=== PATIENT | female | born 2005 | race Caucasian/White ===

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

== ENCOUNTER 2024-11-02 12:47 | Emergency (ER) | payer OTHER, SELFPAY ==
--- OUTSIDE RECORDS SUMMARY | 2024-11-02 12:53 | XMS_ITS | Patient Health Summary ---
Author Organization [facility] Address [address] [place] [address] Care Team Providers Care Sales Professional Name Role Phone Julian Carias MD Primary Care Provider [phone] Note from [facility],non-owned Affiliates and Associated Physician Practices is amultiple site organization consisting of ambulatory clinics and hospital sitesin [place], [place], [place] and [place]. This disclosure is being madepursuant to the Care Everywhere program and may not contain all information available regarding this patient. Last updated 18.[facility] Allergies * Morphine(Rash) -Medium Criticality Medications * Be aware that medications may not be up to date on this document. Alwaysverify current medications with the patient. * ketorolac (TORADOL) 10 MG tablet(Started 04/04/2016) Take 1 Tab by mouth every 6 hours as needed for Pain * docusate sodium (COLACE) 100 MG capsule(Started 04/04/2016) Take 1 Cap by mouth once daily Active Problems Problem Noted Date Diagnosed Date S/P appendectomy 04/04/2016 Social History Tobacco Use Types Packs/Day Years Used Date Smoking Tobacco: Never Alcohol Use Standard Drinks/Week Comments No 0 (1 standard drink = 0.6 oz pur e alcohol) Sex and Gender Information Value Date Recorded Sex Assigned at Not on file Gender Identity Not on file Sexual Orientation Not on file Last Filed Vital Signs Vital Sign Reading Time Taken Comments Blood Pressure 108/70 04/04/2016 3:22 PM CDT Pulse 88 04/04/2016 3:22 PM CDT Temperature 36.6 C (97.8 F) 04/04/2016 3:22 PM CDT Respiratory Rate 20 04/04/2016 3:22 PM CDT Oxygen Saturation 96% 04/04/2016 12:00 PM CDT Inhaled Oxygen Concentration 100% 04/04/2016 9 :15 AM CDT Weight 66.9 kg (147 lb 7.8 oz) 04/04/2016 3:15 A M CDT Height 156 cm (5' 1.42 ) 04/04/2016 3:15 AM CDT Body Mass Index 27.49 04/04/2016 3:15 AM CDT Procedures * PATHOLOGY TISSUE EXAM (STL)(Performed 04/04/2016) Performed for Other acute appendicitis * LAPAROSCOPIC APPENDECTOMY (PEDIATRIC)(Performed 04/04/2016) Performed for Other acute appendicitis * HCG URINE QUALITATIVE - POCT (IP) BEAKER(Performed 04/04/2016) * CT OUTSIDE CONSULTATION(Performed 04/04/2016) Performed for Acute appendicitis, unspecified acute appendicitis type Results * GROSS + MICRO EXAM (STL) (04/04/2016 8:32 AM CDT) Case Report Surgical Pathology Report Case: [id number] Authorizing Provider: Ranjana Slater MD Collected: 04/04/2016 08:32 AM Ordering Location: [facility] Received: 04/06/2016 07:50 AM Pathologist: Josh Velázquez MD Specimen: Appendix 04/07/2016 5:30 PM T [facility] Final Diagnosis VERMIFORM APPENDIX, EXCISION: - ACUTE APPENDICITIS. - ACUTE SEROSITIS. 04/07/2016 5:30 PM [facility] Clinical History The patient is a 10-year-old girl with acute appendicitis who underwent laparoscopic appendectomy. 04/07/2016 5:30 PM T [facility] Gross Description Submitted fixed in formalin in one container for gross and microscopic examination labeled with the patient's name, Ivanna Nolasco, and appendix is a 6 x 2.2 x 1 cm vermiform appendix with attached mesoappendix. The external surface is purple-cummins, congested, and partially surfaced by a white, fibrinous exudate. The proximal appendix and mesentery are stapled. The appendiceal lumen is patent and contains red mucoid material. The appendiceal wall varies from 0.2 cm to 0.4 cm in thickness. The appendiceal lumen varies from 0.2 cm to 0.4 cm in diameter. The specimen is serially sectioned, and real estate representative sections are submitted in cassette A1. (CT/na) 04/07/2016 5:30 PM CDT [facility] Microscopic Description 1 H&E. Sections of the vermiform appendix show intraluminal pus, mucosal ulceration, a transmural neutrophilic inflammatory infiltrate extending to involve mesoappendiceal adipose tissue, and a serosal fibrinopurulent exudate. Ganglia are present in submucosal and myenteric plexuses. (DSB) 04/07/2016 5:30 PM CDT [facility] Pathology/Cytolo gy ENTIRE APPENDIX / Unknown 04/04/2016 8:32 AM CDT 04/06/2016 7:50 AM CDT Ranjana Slater MD LAB - PATHOLOGY/CY TOLOGY ORDERABLES Performing Organization Address City/[facility]/ZIP Co de Phone Number [facility] [address] [place] [address] * HCG URINE QUALITATIVE - POCT (IP) BEAKER (04/04/2016 12:40 AM CDT) HCG Qual Urine Negative Negative [facility] POCT TESTING QC Verified Yes Yes [facility] PO CT TESTING Urine specimen (specimen) URINE / Unknown 04/04/2016 12:40 AM CDT Mitzi Ramirez MD LAB - POINT OF CARE ORDERABLES Performing Organization Address City/[facility]/ZIP Co de Phone Number [facility] PO[facility] TESTING [address] [phone] * CT OUTSIDE CONSULTATION (04/04/2016 12:30 AM CDT) Anatomical Region Laterality Modality Computed Tomogra phy 04/04/2016 8:47 AM CDT Impressions 04/04/2016 8:59 AM CDT Hyperemic, dilated right lower quadrant appendix with periappendiceal stranding, most consistent with acute appendicitis. Preliminary findings were communicated electronically by the PACS system by Dr. Woodward at 12:39 AM on 04/04/2016. The findings, conclusions and recommendations within this report do not replace the initial findings, conclusions and recommendations made at the facility where the study was performed based upon the imaging and clinical condition at that time. Comparison with the prior report and clinical history is necessary. The provided images may or may not represent the [place] source data set and thus may contain changes which may lower the sensitivity in the second opinion interpretation. Narrative 04/04/2016 8:59 AM CDT EXAMINATION: RADIOLOGY CONSULTATION ON OUTSIDE IMAGING STUDY STUDY INITIALLY PERFORMED: On 04/03/2016 by [facility]. TYPE OF STUDY: A total of 467 CT images of the abdomen and pelvis are provided at the time of this interpretation. The study consists of images obtained with intravenous contrast material. The protocol was adequate to answer the clinical question. The outside final report was not provided at the time of this second opinion. DATE OF CONSULTATION: 04/04/2016 REASON FOR CONSULTATION: 10-year-old with abdominal pain. Evaluate for appendicitis. COMPARISON: None. FINDINGS: The examination is somewhat degraded by motion artifact. The lung bases are clear without focal dilatation or pleural effusion. A calcified nodule in the left lower lobe is likely reflective of old granulomatous disease. The imaged heart size is normal without pericardial effusion. The liver parenchyma enhances homogeneously without focal lesions. There is no intra-or extrahepatic biliary ductal dilatation. The gallbladder, adrenal glands, spleen, and pancreas are normal. The kidneys enhance symmetrically without hydronephrosis. The right lower quadrant appendix is dilated measuring 1.1 cm in diameter. The appendiceal wall is hyperemic. There is periappendiceal fat stranding. A small amount of free fluid is seen in the pelvis. No peripherally, loculated fluid collections are present. Small reactive right lower quadrant mesenteric lymph nodes are present. There is no bowel obstruction or free intraperitoneal gas. A 2 cm right adnexal cyst is noted. The uterus appears normal for the patient's age. The urinary bladder is mildly distended. The abdominal aorta is normal in course and caliber. There is incomplete posterior fusion of S1 with a bifid spinous process. Bone windows do not demonstrate any suspicious lytic or blastic osseous lesions. Procedure Note Iris Ricketts MD - 04/04/2016 EXAMINATION: RADIOLOGY CONSULTATION ON OUTSIDE IMAGING STUDY STUDY INITIALLY PERFORMED: On 04/03/2016 by [facility]. TYPE OF STUDY: A total of 467 CT images of the abdomen and pelvis are provided at the time of this interpretation. The study consists of images obtained with intravenous contrast material. The protocol was adequate to answer the clinical question. The outside final report was not provided at the time of this second opinion. DATE OF CONSULTATION: 04/04/2016 REASON FOR CONSULTATION: 10-year-old with abdominal pain. Evaluate for appendicitis. COMPARISON: None. FINDINGS: The examination is somewhat degraded by motion artifact. The lung bases are clear without focal dilatation or pleural effusion. A calcified nodule in the left lower lobe is likely reflective of old granulomatous disease. The imaged heart size is normal without pericardial effusion. The liver parenchyma enhances homogeneously without focal lesions. There is no intra-or extrahepatic biliary ductal dilatation. The gallbladder, adrenal glands, spleen, and pancreas are normal. The kidneys enhance symmetrically without hydronephrosis. The right lower quadrant appendix is dilated measuring 1.1 cm in diameter. The appendiceal wall is hyperemic. There is periappendiceal fat stranding. A small amount of free fluid is seen in the pelvis. No peripherally, loculated fluid collections are present. Small reactive right lower quadrant mesenteric lymph nodes are present. There is no bowel obstruction or free intraperitoneal gas. A 2 cm right adnexal cyst is noted. The uterus appears normal for the patient's age. The urinary bladder is mildly distended. The abdominal aorta is normal in course and caliber. There is incomplete posterior fusion of S1 with a bifid spinous process. Bone windows do not demonstrate any suspicious lytic or blastic osseous lesions. IMPRESSION Hyperemic, dilated right lower quadrant appendix with periappendiceal stranding, most consistent with acute appendicitis. Preliminary findings were communicated electronically by the PACS system by Dr. Woodward at 12:39 AM on 04/04/2016. The findings, conclusions and recommendations within this report do not replace the initial findings, conclusions and recommendations made at the facility where the study was performed based upon the imaging and clinical condition at that time. Comparison with the prior report and clinical history is necessary. The provided images may or may not represent the [place] source data set and thus may contain changes which may lower the sensitivity in the second opinion interpretation. Mitzi Ramirez MD CT ORDERABLES Care Teams Sales Professional Relationship Specialty Start Date End Date Julian Carias MD [address] [place] [address] PCP - General Family Medicine 04/03/16
--- OUTSIDE RECORDS SUMMARY | 2024-11-02 12:53 | XMS_ITS | Referral Summary ---
Author Organization [facility] Address [address] [place] [address] Care Team Providers Care Registered Phlebotomist Part Time Name Role Phone Julian Carias MD Primary Care Provider [phone] Source Comments [facility],non-owned Affiliates and Associated Physician Practices is amultiple site organization consisting of ambulatory clinics and hospital sitesin [place], [place], [place] and [place]. This disclosure is being madepursuant to the Care Everywhere program and may not contain all information available regarding this patient. Last updated 18.[facility] Allergies Active Allergy Reactions Criticality Noted Date Comments Morphine Rash Medium 04/03/2016 Medications * Be aware that medications may not be up to date on this document. Alwaysverify current medications with the patient. Medication Sig Dispensed Refills Start Date End Date Status ketorolac (TORADOL) 10 MG tablet Take 1 Tab by mouth every 6 hours as needed for Pain 12 Tab 0 04/04/2016 Active docusate sodium (COLACE) 100 MG capsule Take 1 Cap by mouth once daily 10 Cap 0 04/04/2016 Active Active Problems Problem Noted Date Diagnosed Date [...] Mass Index 27.49 04/04/2016 3:15 AM CDT Functional Status Functional Status Response Date of Assess ment Is person deaf or have serious hearing difficult y? No 04/04/2016 Is person blind or have serious difficulty seein g? No 04/04/2016 Does person have serious dif ficulty walking/climbing stairs? No 04/04/2016 Does person have difficulty dressing/bathing? No 04/04/2016 Does person have difficulty doing errands alone? No 04/04/2016 Cognitive Status Response Date of Assessm ent Does person have difficulty concentrating/remembering/making decisions? No 04/04/2016 Plan of Treatment Not on file Advance Directives * Full Code (Latest Code Status on File) Date Activated Date Inactivated Comments 04/04/2016 11:11 AM 04/04/2016 6:48 PM * Full Code Date Activated Date Inactivated Comments 04/04/2016 3:01 AM 04/04/2016 11:11 AM Care Teams Registered Phlebotomist Part Time Relationship Specialty Start Date End Date Julian Carias MD [address] [place] [address] PCP - General Family Medicine 04/03/16
--- OUTSIDE RECORDS SUMMARY | 2024-11-02 12:53 | XMS_ITS | Clinical Summary ---
Author Organization [facility] Address [address] [place] [address] Care Team Providers Care Fill Plant Operator Name Role Phone Julian Carias MD Primary Care Provider [phone] Source Comments [facility],non-owned Affiliates and Associated Physician Practices is amultiple site organization consisting of ambulatory clinics and hospital sitesin [place], [place], [place] and [place]. This disclosure is being madepursuant to the Care Everywhere program and may not contain all information available regarding this patient. Last updated 18.[facility] [employer] Allergies Active Allergy Reactions Criticality Noted Date [...] Mass Index 27.49 04/04/2016 3:15 AM CDT Plan of Treatment Health Maintenance Due Date Last Done Comments PAP SMEAR 2003 HIV SCREENING 2018 HPV VACCINE (1 - 3-dose series) 2018 CHLAMYDIA/GONORRHEA SCREENING 2019 MENINGOCOCCAL (Group B) VACC INE (1 of 2 - Standard) 2019 HEPATITIS C SCREENING 07/04/2021 DTAP/TDAP/TD VACCINES (1 - Tdap) 2022 HEPATITIS B VACCINE (1 of 3 - 19+ 3-dose series) 2022 COVID-19 VACCINE (1 - 2023-2 5 season) 2024 INFLUENZA VACCINE (#1) 2024 DEPRESSION SCREENING 09/27/2024 ZOSTER VACCINE (1 of 2) 2053 HIB VACCINE Aged Out No longer eligi ble based on patient's age to complete this topic MENINGOCOCCAL VACCINE Aged Out No pauline ld eligible based on patient's age to complete this topic PNEUMOCOCCAL VACCINE Aged Out No long er eligible based on patient's age to complete this topic Advance Directives * Full Code (Latest Code Status on File) Date Activated Date Inactivated Comments 04/04/2016 11:11 AM 04/04/2016 6:48 PM * Full Code Date Activated Date Inactivated Comments 04/04/2016 3:01 AM 04/04/2016 11:11 AM Care Teams Fill Plant Operator Relationship Specialty Start Date End Date Julian Carias MD [address] [place], [place] [id number] PCP - General Family Medicine 04/03/16
[2024-11-02 12:55] VITALS: BP 148/90; PULSE 104; RESP 18; TEMP 36.9; O2SAT 100
[2024-11-02 13:39] LABS: Strep Group A RT-PCR NOT DETECTED (Negative)
--- OUTSIDE RECORDS SUMMARY | 2024-11-02 13:42 | XMS_ITS | Clinical Summary ---
Author Organization [facility] Address [address] [place] [address] Care Team Providers Care Family Counselor Name Role Phone Julian Carias MD Primary Care Provider [phone] Source Comments [facility],non-owned Affiliates and Associated Physician Practices is amultiple site organization consisting of ambulatory clinics and hospital sitesin [place], [place], [place] and [place]. This disclosure is being madepursuant to the Care Everywhere program and may not contain all information available regarding this patient. Last updated 18.[facility] [employer] Allergies Active Allergy Reactions Criticality Noted Date [...] 3:01 AM 04/04/2016 11:11 AM Care Teams Family Counselor Relationship Specialty Start Date End Date Julian Carias MD [address] [place], [place] [id number] PCP - General Family Medicine 04/03/16
--- OUTSIDE RECORDS SUMMARY | 2024-11-02 13:42 | XMS_ITS | Patient Health Summary ---
Author Organization [facility] Address [address] [place] [address] Care Team Providers Care Tool Honing Machine Set Up Operator Name Role Phone Julian Carias MD Primary Care Provider [phone] Note from [facility],non-owned Affiliates and Associated Physician Practices is amultiple site organization consisting of ambulatory clinics and hospital sitesin [place], [place], [place] and [place]. This disclosure is being madepursuant to the Care Everywhere program and may not contain all information available regarding this patient. Last updated 18.[facility] Allergies * Morphine(Rash) [...] CDT) Case Report Surgical Pathology Report Case: [id number] Authorizing Provider: Ranjana Slater MD Collected: 04/04/2016 08:32 AM Ordering Location: [facility] Received: 04/06/2016 07:50 AM Pathologist: Josh Velázquez MD Specimen: Appendix 04/07/2016 5:30 PM T [facility] Final Diagnosis VERMIFORM APPENDIX, EXCISION: - ACUTE APPENDICITIS. - ACUTE SEROSITIS. 04/07/2016 5:30 PM [facility] Clinical History The patient is a 10-year-old girl with acute appendicitis who underwent laparoscopic appendectomy. 04/07/2016 5:30 PM T [facility] Gross Description Submitted fixed in formalin [...] diameter. The specimen is serially sectioned, and insurance claim representative sections are submitted in cassette A1. (CT/na) 04/07/2016 5:30 PM CDT [facility] Microscopic Description 1 H&E. Sections of the vermiform appendix show intraluminal pus, mucosal ulceration, a transmural neutrophilic inflammatory infiltrate extending to involve mesoappendiceal adipose tissue, and a serosal fibrinopurulent exudate. Ganglia are present in submucosal and myenteric plexuses. (DSB) 04/07/2016 5:30 PM CDT [facility] Pathology/Cytolo gy ENTIRE APPENDIX / Unknown 04/04/2016 8:32 AM CDT 04/06/2016 7:50 AM CDT Ranjana Slater MD LAB - PATHOLOGY/CY TOLOGY ORDERABLES Performing Organization Address City/[facility]/ZIP Co de Phone Number [facility] [address] [place] [address] * HCG URINE QUALITATIVE - POCT (IP) BEAKER (04/04/2016 12:40 AM CDT) HCG Qual Urine Negative Negative [facility] POCT TESTING QC Verified Yes Yes [facility] PO CT TESTING Urine specimen (specimen) URINE / Unknown 04/04/2016 12:40 AM CDT Mitzi Ramirez MD LAB - POINT OF CARE ORDERABLES Performing Organization Address City/[facility]/ZIP Co de Phone Number [facility] POCT TEST[facility] [address] [phone] * CT OUTSIDE CONSULTATION (04/04/2016 12:30 AM [...] images may or may not represent the [place] source data set and thus may contain changes which may lower the sensitivity in the second opinion interpretation. Narrative 04/04/2016 8:59 AM CDT EXAMINATION: RADIOLOGY CONSULTATION ON OUTSIDE IMAGING STUDY STUDY INITIALLY PERFORMED: On 04/03/2016 by [facility]. TYPE OF STUDY: A total of 467 [...] STUDY STUDY INITIALLY PERFORMED: On 04/03/2016 by [facility]. TYPE OF STUDY: A total of 467 [...] images may or may not represent the [place] source data set and thus may contain changes which may lower the sensitivity in the second opinion interpretation. Mitzi Ramirez MD CT ORDERABLES Care Teams Tool Honing Machine Set Up Operator Relationship Specialty Start Date End Date Julian Carias MD [address] [place] [address] PCP - General Family Medicine 04/03/16
--- OUTSIDE RECORDS SUMMARY | 2024-11-02 13:42 | XMS_ITS | Referral Summary ---
Author Organization [facility] Address [address] [place] [address] Care Team Providers Care Cosmetic Sales Name Role Phone Julian Carias MD Primary Care Provider [phone] Source Comments [facility],non-owned Affiliates and Associated Physician Practices is amultiple site organization consisting of ambulatory clinics and hospital sitesin [place], [place], [place] and [place]. This disclosure is being madepursuant to the Care Everywhere program and may not contain all information available regarding this patient. Last updated 18.[facility] Allergies Active Allergy Reactions Criticality Noted Date [...] 3:01 AM 04/04/2016 11:11 AM Care Teams Cosmetic Sales Relationship Specialty Start Date End Date Julian Carias MD [address] [place] [address] PCP - General Family Medicine 04/03/16
[2024-11-02 13:50] LABS: Influenza A QL RT-PCR Negative (Negative); Influenza B QL RT-PCR Negative (Negative); RSV RNA, RT-PCR Positive (Negative); SARS-CoV-2 RNA PCR Negative (Negative)
--- NOTE | 2024-11-02 14:17 | ED_ITS ---
HPI - URI/Sore Throat General Chief Complaint: Upper Respiratory Infection Stated Complaint: cough, ST Time Seen by Provider: 11/02/24 13:18 Source: patient Mode of arrival: ambulatory Limitations: no limitations History of Present Illness HPI Narrative: Patient is a 19-year-old female who presents the ED with report of URI symptoms. Patient reports she has been sick over the last several days with sore throat, mild cough, congestion, rhinorrhea, body aches, headache. 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 Has been taking pswd-iol-trocxxx cold medicines at home. Denies fevers. Denies shortness of breath. Related Data Allergies Allergy/AdvReac Type Severity Reaction Status Date / Time morphine Allergy Unknown Hives / Verified 11/02/24 12:55 Red Face Review of Systems Review of Systems: All systems reviewed & are unremarkable except as noted in HPI. All systems reviewed & are unremarkable except as noted in HPI and below PMFSH Surgical History Surgical History History of appendectomy (2015) Hx of tonsillectomy (06/27/08) Family History Family History Father Hypertension Family history of elevated blood lipids Grandparent Hypertension Social History Social History Smoking status: Never smoker Alcohol intake: never Lack of Transportation: No Lack of Food: Never True Current Housing: I Have Housing Concerned About Future Housing: No Difficulty Paying Gas/Electric Bills: No Difficulty Paying for Meds: No Currently Unemployed: No Education: High School Diploma/GED Difficulty w/ Childcare or Family Care: No Exam Narrative: GENERAL: Well appearing, well-nourished, non-toxic, in no acute distress. HEAD: Normocephalic, atraumatic. ENT: Some cerumen present reyes. No TM erythema or bulging. No drainage. Mild posterior pharynx erythema. Tonsils are absent. Uvula midline. RESPIRATORY: Airway patent, respirations nonlabored. Clear to auscultation bilaterally, no rales, rhonchi, wheezing. CARDIOVASCULAR: Regular rate and rhythm MUSCULOSKELETAL: Moves all extremities. No gross deformities. SKIN: Warm, dry, normal color. NEURO: A&O X3. Speech clear. PSYCHIATRIC: Appropriate mood and affect. Normal interaction. Course Vital Signs Vital signs: Vital Signs Temperature 98.5 F 11/02/24 12:55 Pulse Rate 104 H 11/02/24 12:55 Respiratory Rate 18 11/02/24 12:55 Blood Pressure 148/90 H 11/02/24 12:55 Pulse Oximetry 100 11/02/24 12:55 Oxygen Delivery Room Air 11/02/24 12:55 Temperature 98.5 F 11/02/24 12:55 Pulse Rate 104 H 11/02/24 12:55 Respiratory Rate 18 11/02/24 12:55 Blood Pressure 148/90 H 11/02/24 12:55 Pulse Oximetry 100 11/02/24 12:55 Oxygen Delivery Room Air 11/02/24 13:40 MDM - URI/Sore Throat MDM Narrative Medical decision making narrative: RSV+ Consistent with clinical picture. Strep, covid, flu negative. Patient will be discharged. Will prescribe Tessalon Perles, Zofran as needed for home use. Discussed return precautions. She agrees with plan. Discharged in stable condition. Given work note. Medical Records Attestation: I reviewed the patient's medical records. Lab Data Attestation: I reviewed the patient's lab results. Labs: Lab Results 11/02/24 Range/Units 13:02 Influenza A (RT-PCR) Negative (Negative) Influenza B (RT-PCR) Negative (Negative) RSV (RT-PCR) Positive A (Negative) SARS-CoV-2 RNA (RT-PCR) Negative (Negative) Group A Strep (PCR) Not detected (Negative) Discharge Plan Discharge Clinical Impression: Respiratory syncytial virus (RSV) Qualifiers: RSV infection type: unspecified Qualified Code(s): B33.8 - Other specified viral diseases Patient Disposition: Home, Self-Care Condition: Stable Instructions: Antibiotic Form, Viral Syndrome (ED), Cold Symptoms (ED), RSV (Respiratory Syncytial Virus) Infection (ED) Additional Instructions: You were diagnosed with RSV today. Isolate at home as you are contagious. Stay well-hydrated at home. Recommend electrolyte rich fluids, Gatorade, Pedialyte, body armor. Zofran as needed for nausea. Tessalon Perles as needed for cough. Tylenol and Ibuprofen for discomfort and/or fevers. Recommend mnml-jgw-aajzvej cough and cold medicines for symptom relief, Delsym, Mucinex, DayQuil, NyQuil, Sudafed, Robitussin, TheraFlu. Follow with primary care doctor upon resolution of symptoms. Return to the ED if you experience chest pain, difficulty breathing, unable to keep down food or drink, severe pain, or any other symptoms of concern. Patient Language: Kazakh Prescriptions: New benzonatate 200 mg capsule 200 mg PO TID PRN (Reason: cough) Qty: 15 0RF ondansetron 4 mg tablet,disintegrating 4 mg PO Q8H PRN (Reason: nausea and vomiting) Qty: 15 0RF No Action omeprazole 20 mg capsule,delayed release(DR/EC) 20 mg PO DAILY Qty: 90 3RF Follow-up/Referrals: Cami Sood, HEAD BANDER AND LINER OPERATOR-C [Primary Care Provider] - Stand Alone Forms: Work/School Release IP Time of Disposition: 14:19
[2024-11-02 14:25] VITALS: BP 133/86; PULSE 100; RESP 18; O2SAT 97
== END 2024-11-02 14:27 | disposition home or self-care (01) ==
PROVIDERS: Emergency Medicine; Emergency Provider Physician Assistant; PCP Nurse Practitioner Family
DX: R05.9 Cough, unspecified (principal); B97.4 Respiratory syncytial virus as the cause of diseases classified elsewhere; Z20.822 Contact with and (suspected) exposure to COVID-19
CPT/HCPCS: 87637; 87651; 99283

== ENCOUNTER 2024-12-09 09:58 | Emergency (ER) | payer OTHER, SELFPAY ==
--- NOTE | ~2024-12-09 | XR_ITS ---
Clinical Indication: Upper respiratory infection PA and lateral views of the chest: Comparison: 07/11/2007 Findings: The lungs are clear, without evidence of focal consolidation or pleural effusion. Cardiome diastinal silhouette is within normal limits. Bones and soft tissues are unremarkable. Impression: Normal chest. Reviewed, dictated and finalized at location . Impression: Normal chest.
--- OUTSIDE RECORDS SUMMARY | 2024-12-09 10:00 | XMS_ITS | Clinical Summary ---
Author Organization [facility] Address [address] [place] [address] Care Team Providers Care Athletic Scout Name Role Phone Julian Carias MD Primary Care Provider [phone] Source Comments [facility],non-owned Affiliates and Associated Physician Practices is amultiple site organization consisting of ambulatory clinics and hospital sitesin [place], [place], [place] and [place]. This disclosure is being madepursuant to the Care Everywhere program and may not contain all information available regarding this patient. Last updated 18.[facility] Allergies Active Allergy Reactions Criticality Noted Date [...] SCREENING 2019 MENINGOCOCCAL (Group B) VACC INE SHARED DECISION-MAKING (1 of 2 - Standard) 2019 HEPATITIS [...] patient's age to complete this topic MENINGOCOCCAL GROUPS A/C/Y/W VACCINE Aged Out No longer eligible b ased on patient's age to complete this topic PNEUMOCOCCAL VACCINE Aged Out No long er eligible based on patient's age to complete this topic Advance Directives * Full Code (Latest Code Status on File) Date Activated Date Inactivated Comments 04/04/2016 11:11 AM 04/04/2016 6:48 PM * Full Code Date Activated Date Inactivated Comments 04/04/2016 3:01 AM 04/04/2016 11:11 AM Care Teams Athletic Scout Relationship Specialty Start Date End Date Julian Carias MD [address] [place], [place] [id number] PCP - General Family Medicine 04/03/16
--- OUTSIDE RECORDS SUMMARY | 2024-12-09 10:00 | XMS_ITS | Referral Summary ---
Author Organization [facility] Address [address] [place] [address] Care Team Providers Care Private Advisor Name Role Phone Julian Carias MD Primary Care Provider [phone] Source Comments [facility],non-owned Affiliates and Associated Physician Practices is amultiple site organization consisting of ambulatory clinics and hospital sitesin [place], [place], [place] and [place]. This disclosure is being madepursuant to the Care Everywhere program and may not contain all information available regarding this patient. Last updated 18.[facility] Allergies Active Allergy Reactions Criticality Noted [...] 3:01 AM 04/04/2016 11:11 AM Care Teams Private Advisor Relationship Specialty Start Date End Date Julian Carias MD [address] [place] [address] PCP - General Family Medicine 04/03/16
--- OUTSIDE RECORDS SUMMARY | 2024-12-09 10:00 | XMS_ITS | Patient Health Summary ---
Author Organization [facility] Address [address] [place] [address] Care Team Providers Care Sales Administration Specialist Name Role Phone Julian Carias MD Primary Care Provider [phone] Note from [facility],non-owned Affiliates and Associated Physician Practices is amultiple site organization consisting of ambulatory clinics and hospital sitesin [place], [place], [place] and [place]. This disclosure is being madepursuant to the Care Everywhere program and may not contain all information available regarding this patient. Last updated 18.[facility] Allergies * Morphine(Rash) -Medium Criticality Medications * [...] CDT) Case Report Surgical Pathology Report Case: [id number] Authorizing Provider: Ranjana Slater MD Collected: 04/04/2016 08:32 AM Ordering Location: [facility] Received: 04/06/2016 07:50 AM Pathologist: Josh Velázquez MD Specimen: Appendix 04/07/2016 5:30 PM T [facility] Final Diagnosis VERMIFORM APPENDIX, EXCISION: - ACUTE APPENDICITIS. - ACUTE SEROSITIS. 04/07/2016 5:30 PM [facility] Clinical History The patient is a 10-year-old girl with acute appendicitis who underwent laparoscopic appendectomy. 04/07/2016 5:30 PM T [facility] Gross Description Submitted fixed in [...] diameter. The specimen is serially sectioned, and patient intake representative sections are submitted in cassette A1. (CT/na) 04/07/2016 5:30 PM CDT [facility] Microscopic Description 1 H&E. Sections of the vermiform appendix show intraluminal pus, mucosal ulceration, a transmural neutrophilic inflammatory infiltrate extending to involve mesoappendiceal adipose tissue, and a serosal fibrinopurulent exudate. Ganglia are present in submucosal and myenteric plexuses. (DSB) 04/07/2016 5:30 PM CDT [facility] Pathology/Cytolo gy ENTIRE APPENDIX / Unknown 04/04/2016 8:32 AM CDT 04/06/2016 7:50 AM CDT Ranjana Slater MD LAB - PATHOLOGY/CY TOLOGY ORDERABLES Performing Organization Address City/[facility]/ZIP Co de Phone Number [facility] [address] [place] [address] * HCG URINE QUALITATIVE - POCT (IP) BEAKER (04/04/2016 12:40 AM CDT) HCG Qual Urine Negative Negative [facility] POCT TEST[facility] QC Verified Yes Yes [facility] PO CT TESTING Urine specimen (specimen) URINE / Unknown 04/04/2016 12:40 AM CDT Mitzi Ramirez MD LAB - POINT OF CARE ORDERABLES Performing Organization Address City/[facility]/ZIP Co de Phone Number [facility] [address] [phone] * CT OUTSIDE CONSULTATION (04/04/2016 12:30 AM [...] images may or may not represent the [place] source data set and thus may contain changes which may lower the sensitivity in the second opinion interpretation. Narrative 04/04/2016 8:59 AM CDT EXAMINATION: RADIOLOGY CONSULTATION ON OUTSIDE IMAGING STUDY STUDY INITIALLY PERFORMED: On 04/03/2016 by [facility]. TYPE OF STUDY: A total of 467 [...] STUDY STUDY INITIALLY PERFORMED: On 04/03/2016 by [facility]. TYPE OF STUDY: A total of 467 [...] images may or may not represent the [place] source data set and thus may contain changes which may lower the sensitivity in the second opinion interpretation. Mitzi Ramirez MD CT ORDERABLES Care Teams Sales Administration Specialist Relationship Specialty Start Date End Date Julian Carias MD [address] [place] [address] PCP - General Family Medicine 04/03/16
[2024-12-09 10:05] VITALS: BP 140/90; PULSE 107; RESP 16; TEMP 37.4; O2SAT 100
--- OUTSIDE RECORDS SUMMARY | 2024-12-09 10:22 | XMS_ITS | Referral Summary ---
Author Organization [facility] Address [address] [place] [address] Care Team Providers Care Cooker Soda Name Role Phone Julian Carias MD Primary Care Provider [phone] Source Comments [facility],non-owned Affiliates and Associated Physician Practices is amultiple site organization consisting of ambulatory clinics and hospital sitesin [place], [place], [place] and [place]. This disclosure is being madepursuant to the Care Everywhere program and may not contain all information available regarding this patient. Last updated 18.[facility] Allergies Active Allergy Reactions Criticality Noted [...] 3:01 AM 04/04/2016 11:11 AM Care Teams Cooker Soda Relationship Specialty Start Date End Date Julian Carias MD [address] [place] [address] PCP - General Family Medicine 04/03/16
--- OUTSIDE RECORDS SUMMARY | 2024-12-09 10:22 | XMS_ITS | Clinical Summary ---
Author Organization [facility] Address [address] [place] [address] Care Team Providers Care Ore Roaster Name Role Phone Julian Carias MD Primary Care Provider [phone] Source Comments [facility],non-owned Affiliates and Associated Physician Practices is amultiple site organization consisting of ambulatory clinics and hospital sitesin [place], [place], [place] and [place]. This disclosure is being madepursuant to the Care Everywhere program and may not contain all information available regarding this patient. Last updated 18.[facility] Allergies Active Allergy Reactions Criticality Noted Date [...] 3:01 AM 04/04/2016 11:11 AM Care Teams Ore Roaster Relationship Specialty Start Date End Date Julian Carias MD [address] [place], [place] [id number] PCP - General Family Medicine 04/03/16
--- OUTSIDE RECORDS SUMMARY | 2024-12-09 10:22 | XMS_ITS | Patient Health Summary ---
Author Organization [facility] Address [address] [place] [address] Care Team Providers Care Digital X Ray Service Engineer Name Role Phone Julian Carias MD Primary Care Provider [phone] Note from [facility],non-owned Affiliates and Associated Physician Practices is amultiple site organization consisting of ambulatory clinics and hospital sitesin [place], [place], [place] and [place]. This disclosure is being madepursuant to the Care Everywhere program and may not contain all information available regarding this patient. Last updated 18.[facility] Allergies * Morphine(Rash) -Medium Criticality Medications [...] CDT) Case Report Surgical Pathology Report Case: [id number] Authorizing Provider: Ranjana Slater MD Collected: 04/04/2016 08:32 AM Ordering Location: [facility] Received: 04/06/2016 07:50 AM Pathologist: Josh Velázquez MD Specimen: Appendix 04/07/2016 5:30 PM T [facility] Final Diagnosis VERMIFORM APPENDIX, EXCISION: - ACUTE APPENDICITIS. - ACUTE SEROSITIS. 04/07/2016 5:30 PM [facility] Clinical History The patient is a 10-year-old girl with acute appendicitis who underwent laparoscopic appendectomy. 04/07/2016 5:30 PM T [facility] Gross Description Submitted fixed in [...] diameter. The specimen is serially sectioned, and representative personal service sections are submitted in cassette A1. (CT/na) 04/07/2016 5:30 PM CDT [facility] Microscopic Description 1 H&E. Sections of the vermiform appendix show intraluminal pus, mucosal ulceration, a transmural neutrophilic inflammatory infiltrate extending to involve mesoappendiceal adipose tissue, and a serosal fibrinopurulent exudate. Ganglia are present in submucosal and myenteric plexuses. (DSB) 04/07/2016 5:30 PM CDT [facility] Pathology/Cytolo gy ENTIRE APPENDIX / Unknown 04/04/2016 8:32 AM CDT 04/06/2016 7:50 AM CDT Ranjana Slater MD LAB - PATHOLOGY/CY TOLOGY ORDERABLES Performing Organization Address City/[facility]/ZIP Co de Phone Number [facility] [address] [place] [address] * HCG URINE QUALITATIVE - POCT (IP) BEAKER (04/04/2016 12:40 AM CDT) HCG Qual Urine Negative Negative [facility] POCT TESTING QC Verified Yes Yes [facility] PO CT TESTING Urine specimen (specimen) URINE / Unknown 04/04/2016 12:40 AM CDT Mitzi Ramirez MD LAB - POINT OF CARE ORDERABLES Performing Organization Address City/[facility]/ZIP Co de Phone Number [facility] [address] [phone] * CT OUTSIDE CONSULTATION (04/04/2016 12:30 AM [...] images may or may not represent the [place] source data set and thus may contain changes which may lower the sensitivity in the second opinion interpretation. Narrative 04/04/2016 8:59 AM CDT EXAMINATION: RADIOLOGY CONSULTATION ON OUTSIDE IMAGING STUDY STUDY INITIALLY PERFORMED: On 04/03/2016 by [facility]. TYPE OF STUDY: A total of [...] STUDY STUDY INITIALLY PERFORMED: On 04/03/2016 by [facility]. TYPE OF STUDY: A total of [...] images may or may not represent the [place] source data set and thus may contain changes which may lower the sensitivity in the second opinion interpretation. Mitzi Ramirez MD CT ORDERABLES Care Teams Digital X Ray Service Engineer Relationship Specialty Start Date End Date Julian Carias MD [address] [place] [address] PCP - General Family Medicine 04/03/16
--- NOTE | 2024-12-09 10:46 | ED.URI ---
HPI - URI/Sore Throat General Chief Complaint: Upper Respiratory Infection Stated Complaint: sore throat Time Seen by Provider: 12/09/24 10:13 History of Present Illness HPI Narrative: 19-year-old otherwise healthy female presenting to the emergency department with upper respiratory infection symptoms including cough, congestion, sore throat, low-grade fevers and sinus pressure for the last 10 days. Diagnosed with RSV early last month. Feels similar to that presentation. Has been taking DayQuil and NyQuil as well Tylenol and ibuprofen without any relief of symptoms. Denies any shortness a breath, nausea, vomiting, chest pain, abdominal pain, back pain. Was otherwise in her normal state of health. Related Data Allergies Allergy/AdvReac Type Severity Reaction Status Date / Time morphine Allergy Unknown Hives / Verified 12/09/24 09:59 Red Face Review of Systems Review of Systems: [facility] with the HPI [facility] Surgical History Surgical History History of appendectomy (2015) Hx of tonsillectomy (06/27/08) Family History Family History Father Hypertension Family history of elevated blood lipids Grandparent Hypertension Social History Social History Smoking status: Never smoker Alcohol intake: never Lack of Transportation: No Lack of Food: Never True Current Housing: I Have Housing Concerned About Future Housing: No Difficulty Paying Gas/Electric Bills: No Difficulty Paying for Meds: No Currently Unemployed: No Education: High School Diploma/GED Difficulty w/ Childcare or Family Care: No Exam Narrative: GENERAL: [Well-appearing, well-nourished, and in no acute distress.] HEAD: [Normocephalic, atraumatic.] EYES: [PERRLA and EOMI.] ENT: Nares clear, no rhinorrhea or epistaxis. Mucous membranes moist. NECK: Supple. CHEST: [Clear to auscultation. No respiratory distress.] HEART: [Regular rate and rhythm]. No murmur heard. [Normal peripheral pulses.] ABDOMEN: [Soft, nondistended], [nontender], [No rigidity or guarding] EXTREMITIES: Normal range of motion. [No edema.] SKIN: Warm, dry, no rash. NEURO: [No focal deficits]. Alert and oriented [x3.] PSYCH: [Normal mood and affect.] Course Vital Signs Vital signs: Vital Signs Temperature 37.4 C 12/09/24 10:05 Pulse Rate 107 H 12/09/24 10:05 Respiratory Rate 16 12/09/24 10:05 Blood Pressure 140/90 12/09/24 10:05 Pulse Oximetry 100 12/09/24 10:05 Oxygen Delivery Room Air 12/09/24 10:05 Temperature 37.4 C 12/09/24 10:05 Pulse Rate 107 H 12/09/24 10:05 Respiratory Rate 16 12/09/24 10:05 Blood Pressure 140/90 12/09/24 10:05 Pulse Oximetry 100 12/09/24 10:05 Oxygen Delivery Room Air 12/09/24 10:05 MDM - URI/Sore Throat MDM Narrative Medical decision making narrative: 19-year-old otherwise healthy female presenting to the emergency department with upper respiratory infection symptoms including cough, congestion, sore throat, low-grade fevers. She is overall very well-appearing not any acute distress. No fever. Vital signs show some mild tachycardia but no other concerns. She has clear breath sounds throughout all lung pinto, 2+ symmetric pulses. Suspicion presently is for upper respiratory infection, COVID, influenza, sinusitis, strep throat. Viral panel swabs, strep panel, chest x-ray obtained. Treatment depending on etiology. Patient's two-view chest x-rays independent reviewed, shows no pneumonia pneumothorax or consolidation. Viral panel swabs are negative. Strep swab negative. Patient is safe and stable for discharge home at this time. Will be prescribed benzonatate for cough, Claritin and Flonase for congestion. Medical Records Attestation: I reviewed the patient's medical records. Lab Data Attestation: I reviewed the patient's lab results. Labs: Lab Results 12/09/24 Range/Units 10:16 Influenza A (RT-PCR) Negative (Negative) Influenza B (RT-PCR) Negative (Negative) RSV (RT-PCR) Negative (Negative) SARS-CoV-2 RNA (RT-PCR) Negative (Negative) Group A Strep (PCR) Not detected (Negative) Imaging Data Attestation: I personally reviewed and interpreted this imaging study as follows: My impression: Impressions Chest X-Ray 12/09/24 10:41 Impression: Normal chest. Discharge Plan Discharge Clinical Impression: Upper respiratory infection Patient Disposition: Home, Self-Care Condition: Stable Instructions: Antibiotic Form, Viral Syndrome (ED) Additional Instructions: Your chest x-ray shows no pneumonia consolidation, viral swabs were all negative, strep swab negative. You likely have a persistent upper respiratory infection but no indication for antibiotics. We will send you home with regimen of medications to try for your symptoms. Return with any new concerns otherwise follow-up with regular doctor. Patient Language: Macanese Prescriptions: New loratadine [Claritin] 10 mg tablet 10 mg PO DAILY PRN (Reason: allergic symptoms) Qty: 30 0RF benzonatate 200 mg capsule 200 mg PO TID PRN (Reason: cough) Qty: 20 0RF fluticasone propionate [Flonase Allergy Relief] 50 mcg/actuation spray,suspension 1 spray intranasal BID Qty: 16 0RF Rx Instructions: administer into each nostril No Action omeprazole 20 mg capsule,delayed release(DR/EC) 20 mg PO DAILY Qty: 90 3RF benzonatate 200 mg capsule 200 mg PO TID PRN (Reason: cough) Qty: 15 0RF ondansetron 4 mg tablet,disintegrating 4 mg PO Q8H PRN (Reason: nausea and vomiting) Qty: 15 0RF Follow-up/Referrals: Cami Sood, ASSISTANT COMMISSIONER-C [Primary Care Provider] - Time of Disposition: 13:04
[2024-12-09 11:01] LABS: Influenza A QL RT-PCR Negative (Negative); Influenza B QL RT-PCR Negative (Negative); RSV RNA, RT-PCR Negative (Negative); SARS-CoV-2 RNA PCR Negative (Negative)
[2024-12-09 11:42] LABS: Strep Group A RT-PCR NOT DETECTED (Negative)
[2024-12-09 13:27] VITALS: BP 133/86; PULSE 88; RESP 16; O2SAT 99
== END 2024-12-09 13:28 | disposition home or self-care (01) ==
PROVIDERS: Emergency Medicine; Emergency Provider Student in an Organized Health Care Education/Training Program; PCP Nurse Practitioner Family
DX: J06.9 Acute upper respiratory infection, unspecified (principal); Z20.822 Contact with and (suspected) exposure to COVID-19
CPT/HCPCS: 71046; 87637; 87651; 99283

== ENCOUNTER 2025-01-01 07:53 | Day surgery (SDC) | payer OTHER, SELFPAY ==
[2025-01-01] VITALS (13 sets, daily range): BP systolic 100–148; BP diastolic 59–99; PULSE 68–100; RESP 14–22; TEMP 36.2–36.9; O2SAT 94–100
--- NOTE | ~2025-01-01 | US_ITS ---
RIGHT UPPER QUADRANT ABDOMINAL ULTRASOUND (Doppler ultrasound interrogation techniques used as needed for this exam.) Ordering provider: Rebel Arevalo MD History: . pain . Comparison: None. FINDINGS: PANCREAS: Normal echotexture and size of the visualized portion. PORTAL VEIN: Hepatopedal flow demonstrated. LIVER: Normal size and echotexture. The liver measures 17.7 cm. No focal hepatic lesions or perihepat ic fluid collections are identified. BILIARY DUCTS: No intra or extrahepatic biliary dilation. Common bile duct measures 3.23 mm in diamet er which is normal for patient's age. GALLBLADDER: Multiple stones are seen in the neck of the gallbladder. No sludge, gallbladder wall thi ckening or pericholecystic fluid. Wall thickness is 1.9 mm. Negative sonographic Tamayo's sign. IVC: Patent. Abdominal aorta: Normal. FREE FLUID: None visualized within the upper abdomen. IMPRESSION: Cholelithiasis. Otherwise, normal right upper quadrant ultrasound. Reviewed, dictated and finalized at location A.
--- OUTSIDE RECORDS SUMMARY | 2025-01-01 07:54 | XMS_ITS | Clinical Summary ---
Author Organization [facility] Address [address] [place] [address] Care Team Providers Care Wool Washer Feeder Name Role Phone Julian Carias MD Primary Care Provider Source Comments [facility],non-owned Affiliates and Associated Physician Practices is amultiple site organization consisting of ambulatory clinics and hospital sitesin [place], [place], [place] and [place]. This disclosure is being madepursuant to the Care Everywhere program and may not contain all information available regarding this patient. Last updated 18.[facility] [employer] Allergies Active Allergy Reactions Criticality Noted Date [...] VACCINE (1 - 2023-2 5 season) 2024 DEPRESSION SCREENING 09/27/2024 INFLUENZA VACCINE (Season Ended) 2025 ZOSTER VACCINE (1 of 2) 2053 HIB [...] 3:01 AM 04/04/2016 11:11 AM Care Teams Wool Washer Feeder Relationship Specialty Start Date End Date Julian Carias MD [address] [place], [place] [id number] PCP - General Family Medicine 04/03/16
[2025-01-01] MEDS: fentaNYL CITRATE INJ (*CRX) 100 MCG/2 ML VIAL 50 MCG IV PUSH ×2 (08:20→09:29)
[2025-01-01] MEDS: SODIUM CHLORIDE 0.9% IV 1,000 ML 999 ML IV CONT (08:20)
[2025-01-01] MEDS: PROMETHAZINE HCL 25 MG/ML AMPUL 12.5 MG IV PUSH (08:20)
[2025-01-01 08:26] LABS: BEDSIDEPREGUCG Negative (Negative)
[2025-01-01 08:40] LABS: Basophils Percent Auto 0.2 % (0.2-1.2); Eosinophils Percent Auto 0.2 % (0-4.4); Hematocrit 41.6 % (37.0-47.0); Hemoglobin 13.4 g/dL (12.0-15.0); Immature Granulocyte Absolute 0.03 K/mm3 (0.00-0.031); Immature Granulocyte Percent A 0.3 % (0-0.5); Lymphocytes Absolute Auto 1.22 K/mm3 (0.9-3.2); Mean Corpuscular HGB Conc 32.2 g/dl (32-36); Mean Corpuscular Hemoglobin 26.1 pg (26-34); Mean Corpuscular Volume 81.1 fl (80-100); Mean Platelet Volume 11.1 fl (7.4-10.4); Monocytes Absolute Auto 0.4 K/mm3 (0.1-0.6); Monocytes Percent Auto 3.5 % (2.6-8.5); Neutrophils Absolute Auto 8.5 K/mm3 (1.3-6.7); Neutrophils Percent Auto 83.8 % (45.5-73.1); Platelet Count Result 279 k/mm3 (150-375); Red Blood Count 5.13 M/mm3 (4.2-5.4); Red Cell Distribution Width 13.9 % (11.5-14.5); White Blood Count 10.2 K/mm3 (4.5-10.0)
[2025-01-01 08:46] LABS: Add Urine Microscopic? YES; Appearance Urine Clear (Clear); Bacteria Urine Rare /hpf; Bilirubin Urine Negative (Negative); Blood Urine Negative (Negative); Color Urine Yellow (Yellow); Glucose Urine UA Negative (Negative); Ketones Urine Trace mg/dL (Negative); Leukocyte Esterase Ur Negative LEU/UL (Negative); Nitrate Urine Negative (Negative); Non Pathogenic Casts 0-2; Protein Urine Trace mg/dL (Negative); RBC Urine 0-2 /hpf (0-2); Specific Grav Ur 1.031 (1.001-1.035); Squamous Epithelial Cell Urine Occasional /hpf (Few); Urobilinogen Urine 0.2 mg/dL (<2.0); WBC Urine 0-5 /hpf (0-3); pH Urine 6.5 (5.0-9.0)
[2025-01-01 08:49] LABS: Alanine Aminotransferase 31 U/L (6-35); Albumin Level 4.6 g/dL (3.5-5.1); Alkaline Phosphatase 72 U/L (38-126); Anion Gap 11 mmol/L (4-12); Aspartate Amino Transferase 27 U/L (14-36); Bilirubin,Total 1.2 mg/dL (0.2-1.3); Blood Urea Nitrogen 10 mg/dL (7-17); Calcium 9.2 mg/dL (8.4-10.2); Carbon Dioxide 20 mmol/L (22-30); Chloride 106 mmol/L (98-107); Estimated CRCL calculation 129 ml/min; Estimated Glomerular Filt Rate > 60; Glucose 132 mg/dL (65-110); Lipase 59 U/L (23-300); Potassium 4.1 mmol/L (3.4-5.0); Sodium 137 mmol/L (137-145)
--- OUTSIDE RECORDS SUMMARY | 2025-01-01 09:04 | XMS_ITS | Clinical Summary ---
Author Organization [facility] Address [address] [place] [address] Care Team Providers Care Junior Administrative Assistant Name Role Phone Julian Carias MD Primary Care Provider [phone] Source Comments [facility],non-owned Affiliates and Associated Physician Practices is amultiple site organization consisting of ambulatory clinics and hospital sitesin [place], [place], [place] and [place]. This disclosure is being madepursuant to the Care Everywhere program and may not contain all information available regarding this patient. Last updated 18.[facility] [employer] Allergies Active Allergy Reactions Criticality Noted Date [...] 3:01 AM 04/04/2016 11:11 AM Care Teams Junior Administrative Assistant Relationship Specialty Start Date End Date Julian Carias MD [address] [place], [place] [id number] PCP - General Family Medicine 04/03/16
--- NOTE | 2025-01-01 09:24 | ED.ABDPAIN ---
HPI - Abdominal Pain General Chief Complaint: Abdominal Pain Stated Complaint: abd pain Time Seen by Provider: 01/01/25 07:55 History of Present Illness HPI narrative: Patient is a 19-year-old female who presents ER with sudden onset right upper quadrant abdominal pain. Sharp. Rates back. Associated nausea and vomiting. No alleviating factors. She has had similar pain in the past. Worse when eating. Had some ice cream last night. Related Data Allergies Allergy/AdvReac Type Severity Reaction Status Date / Time morphine Allergy Unknown Hives / Verified 01/01/25 13:07 Red Face Review of Systems Review of Systems: All systems reviewed & are unremarkable except as noted in HPI and below Constitutional: Constitutional: Reports no additional constitutional complaints ENT: Reports system reviewed and no additional complaints, except as documented Cardiovascular: Cardiovascular: Reports no additional cardiovascular complaints Respiratory: Respiratory: Reports no additional respiratory complaints Gastrointestinal: Gastrointestinal: Reports no additional gastrointestinal complaints COUNTS INCLUDE 234 BEDS AT THE [facility] Past Medical History Medical History (Updated 01/01/25 @ 18:27 by Rebel Arevalo MD) Healthy female adult Surgical History Surgical History History of appendectomy (2015) Hx of tonsillectomy (06/27/08) Family History Family History Father Hypertension Family history of elevated blood lipids Grandparent Hypertension Social History Social History Smoking status: Never smoker Alcohol intake: never Lack of Transportation: No Lack of Food: Never True Current Housing: I Have Housing Concerned About Future Housing: No Difficulty Paying Gas/Electric Bills: No Difficulty Paying for Meds: No Currently Unemployed: No Education: High School Diploma/GED Difficulty w/ Childcare or Family Care: No Exam Narrative: GENERAL: Uncomfortable-appearing, well-nourished, and in mild distress. HEAD: Normocephalic, atraumatic. ENT: Mucous membranes moist. NECK: Supple. CHEST: Clear to auscultation. No respiratory distress. HEART: Regular rate and rhythm. Normal peripheral pulses. ABDOMEN: Soft, tender to palpation right upper quadrant with guarding, nondistended. EXTREMITIES: Normal range of motion. No edema. SKIN: Warm, dry, no rash. NEURO: Alert and oriented x3. PSYCH: Normal mood and affect. Course Course Emergency Course: Discussed with General surgery. They will take the patient to the OR. No evidence of infection this times antibiotics were not given. Patient continues have pain despite multiple doses of fentanyl and continues have nausea despite multiple antiemetics. Vital Signs Vital signs: Vital Signs Temperature 98.4 F 01/01/25 07:56 Pulse Rate 80 01/01/25 07:56 Respiratory Rate 18 01/01/25 07:56 Blood Pressure 148/99 H 01/01/25 07:56 Pulse Oximetry 100 01/01/25 07:56 Oxygen Delivery Room Air 01/01/25 07:56 Temperature 97.1 F L 01/01/25 15:00 Pulse Rate 100 01/01/25 17:00 Respiratory Rate 14 01/01/25 16:30 Blood Pressure 126/86 01/01/25 17:00 Pulse Oximetry 94 01/01/25 16:30 Oxygen Delivery Room Air 01/01/25 17:00 Oxygen Flow Rate 8 01/01/25 15:30 MDM - Abdominal Pain Lab Data 01/01/25 08:23 01/01/25 08:23 Labs: Lab Results 01/01/25 01/01/25 01/01/25 Range/Units 08:23 08:24 08:34 WBC 10.2 H (4.5-10.0) K/mm3 RBC 5.13 (4.2-5.4) M/mm3 Hgb 13.4 (12.0-15.0) g/dL Hct 41.6 (37.0-47.0) % MCV 81.1 (80-100) fl MCH 26.1 (26-34) pg MCHC 32.2 (32-36) g/dl RDW 13.9 (11.5-14.5) % Plt Count 279 (150-375) k/mm3 MPV 11.1 H (7.4-10.4) fl Immature Gran % (Auto) 0.3 (0-0.5) % Neut % (Auto) 83.8 H (45.5-73.1) % Lymph % (Auto) 12.0 L (18.3-44.2) % [place] % (Auto) 3.5 (2.6-8.5) % Eos % (Auto) 0.2 (0-4.4) % Baso % (Auto) 0.2 (0.2-1.2) % Lymph # (Auto) 1.22 (0.9-3.2) K/mm3 [place] # (Auto) 0.4 (0.1-0.6) K/mm3 Eos # (Auto) 0.0 (0-0.3) K/mm3 Baso # (Auto) 0.0 (0.0-0.1) K/mm3 Abs Immat Gran (auto) 0.03 (0.00-0.031) K/mm3 Absolute Neuts (auto) 8.5 H (1.3-6.7) K/mm3 Absolute Nucleated RBC 0.000 (0.0-0.012) K/mm3 Nucleated RBC % 0.0 (0.0-0.2) % Sodium 137 (137-145) mmol/L Potassium 4.1 (3.4-5.0) mmol/L Chloride 106 (98-107) mmol/L Carbon Dioxide 20 L (22-30) mmol/L Anion Gap 11 (4-12) mmol/L BUN 10 (7-17) mg/dL Creatinine 0.68 L (0.7-1.0) mg/dL Estim Creat Clear Calc 129 ml/min Estimated GFR > 60 (59 - ) Glucose 132 H (65-110) mg/dL Calcium 9.2 (8.4-10.2) mg/dL Total Bilirubin 1.2 (0.2-1.3) mg/dL AST 27 (14-36) U/L ALT 31 (6-35) U/L Alkaline Phosphatase 72 (38-126) U/L Total Protein 8.0 (6.3-8.2) g/dL Albumin 4.6 (3.5-5.1) g/dL Lipase 59 (23-300) U/L Urine Color Yellow (Yellow) Urine Appearance Clear (Clear) Urine pH 6.5 (5.0-9.0) Ur Specific [place] 1.031 (1.001-1.035) Urine Protein Trace (Negative) mg/dL Urine Glucose (UA) Negative (Negative) mg/dL Urine Ketones Trace H (Negative) mg/dL Ur Blood (Man) Negative (Negative) Urine Nitrate Negative (Negative) Urine Bilirubin Negative (Negative) Urine Urobilinogen 0.2 (<2.0) mg/dL Leukocyte Esterase Rfl Negative (Negative) ELIA/UL Urine RBC 0-2 (0-2) /hpf Urine WBC 0-5 (0-3) /hpf Ur Squamous Epith Cells Occasional (Few) /hpf Urine Bacteria Rare /hpf Urine Casts 0-2 POC Urine HCG, Qual Negative (Negative) Imaging Data Radiologist's impression: ITS Impressions Upper Quadrant Ultrasound 01/01/25 09:14 IMPRESSION: Cholelithiasis. Otherwise, normal right upper quadrant ultrasound. Discharge Plan Discharge Clinical Impression: Cholelithiasis Patient Disposition: Still a Patient Condition: Stable
[2025-01-01] MEDS: ONDANSETRON INJ 4 MG/2 ML VIAL IV PUSH (09:48)
[2025-01-01] MEDS: PROCHLORPERAZINE EDISYLATE 10 MG/2 ML VIAL IV PUSH (10:47)
--- NOTE | 2025-01-01 11:35 | P.HP_ITS ---
H&P: HPI History of Present Illness Date/Time: 01/01/25 11:35 Chief Complaint: Right upper quadrant abdominal pain Narrative: This is a 19-year-old female who presented to the ED today with complaints of right upper quadrant abdominal pain. She has had more mild symptoms over the past year and a half that have been associated with eating fatty foods. Symptoms would typically resolve by the following day. Recently, her symptoms have become more frequent. She has attempted dietary adjustments, but continues to have progressive symptoms. She is now having an attack almost weekly. She had an episode of pain about a week and a half ago with nausea and vomiting after eating fatty foods. This did resolve with time, but last night she woke up around 1:00 a.m. with epigastric and right upper quadrant abdominal pain. She had ice cream before bed last night. Her pain progressed throughout the night with associated nausea and vomiting. She then came into the ED for evaluation. [place] [address] and LFTs normal. Lipase normal. Right upper quadrant abdominal ultrasound showed gallstones within the neck of the gallbladder. She continues to have right upper quadrant pain and vomiting despite IV medications. She is now seen in the ED for surgical consultation for possible acute cholecystitis. Her only previous abdominal surgery is a laparoscopic appendectomy about 10 years ago. Review of Systems Review of Systems: All systems reviewed & are unremarkable except as noted in HPI and below PMFSH Surgical History Surgical History History of appendectomy (2015) Hx of tonsillectomy (06/27/08) Family History Family History Father Hypertension Family history of elevated blood lipids Grandparent Hypertension Social History Social History Smoking status: Never smoker Alcohol intake: never Lack of Transportation: No Lack of Food: Never True Current Housing: I Have Housing Concerned About Future Housing: No Difficulty Paying Gas/Electric Bills: No Difficulty Paying for Meds: No Currently Unemployed: No Education: High School Diploma/GED Difficulty w/ Childcare or Family Care: No Meds Home Medications and Allergies Home Medications ?Medication ?Instructions ?Recorded ?Confirmed ?Type omeprazole 20 mg capsule,delayed 20 mg PO DAILY #90 caps 11/24/23 01/01/25 Rx release ondansetron 4 mg disintegrating 4 mg PO Q8H PRN nausea and 11/02/24 01/01/25 Rx tablet vomiting #15 tabs Allergies Allergy/AdvReac Type Severity Reaction Status Date / Time morphine Allergy Unknown Hives / Verified 01/01/25 08:19 Red Face Vital Signs Vital Signs - 24 hr 01/01/25 07:56 01/01/25 09:19 Temperature 98.4 F Pulse Rate 80 70 Respiratory Rate 18 15 Blood Pressure 148/99 H 133/96 H Pulse Oximetry 100 100 Oxygen Delivery Room Air Exam Const: General: uncomfortable (Due to pain and nausea, vomiting during my exam) Nutritional Appearance: obese Orientation/consciousness: patient oriented x3 HENMT: Head: normocephalic and atraumatic Ears: hearing grossly normal bilaterally Mouth: Yes moist mucous membranes Eyes: General: appearance normal, both eyes and all related structures Pupils: Equal, round and reactive pupils present Neck: Neck: normal visual inspection and full ROM Resp: Effort & Inspection: no respiratory distress Auscultation: clear to auscultation bilaterally Cardio: Rate: regular rate Rhythm: regular rhythm Peripheral pulses: Peripheral pulses 2+ throughout GI: Inspection: non-distended and obesity GI Palp: Yes Soft to palpation, Yes Tenderness to palpation present (GI) (RUQ), Yes Guarding due to palpation present (GI) (RUQ), No Hernia present and No Rebound tenderness present Auscultation: normal bowel sounds Skin: General skin exam: normal color Neuro: General: moves all extremities and no focal motor deficits Speech: normal speech Motor exam (neuro): 5/5 motor strength present throughout Extrem: General: normal to inspection and no edema Psych: Mental Status: mental status grossly normal Attitude: cooperative Insight: Good insight present (Psych) Judgement: Good judgement present ( Psych) H&P: Results Labs Labs: Short CBC 01/01/25 Range/Units 08:23 WBC 10.2 H (4.5-10.0) K/mm3 Hgb 13.4 (12.0-15.0) g/dL Hct 41.6 (37.0-47.0) % Plt Count 279 (150-375) k/mm3 [facility] 01/01/25 08:23 Sodium 137 Potassium 4.1 Chloride 106 Carbon Dioxide 20 L BUN 10 Creatinine 0.68 L Glucose 132 H Calcium 9.2 Liver Function 01/01/25 Range/Units 08:23 Total Bilirubin 1.2 (0.2-1.3) mg/dL AST 27 (14-36) U/L ALT 31 (6-35) U/L Alkaline Phosphatase 72 (38-126) U/L Albumin 4.6 (3.5-5.1) g/dL Urine 01/01/25 Range/Units 08:34 Urine Color Yellow (Yellow) Urine Appearance Clear (Clear) Urine pH 6.5 (5.0-9.0) Ur Specific [place] 1.031 (1.001-1.035) Urine Protein Trace (Negative) mg/dL Urine Glucose (UA) Negative (Negative) mg/dL Imaging US - abdomen: Radiologist's impression: ITS Impressions Upper Quadrant Ultrasound 01/01/25 09:14 IMPRESSION: Cholelithiasis. Otherwise, normal right upper quadrant ultrasound. Assessment and Plan Assessment and plan (1) Acute calculous cholecystitis: Code(s): K80.00 - Calculus of gallbladder with acute cholecystitis without obstruction Status: Acute Assessment and Plan: Right upper quadrant ultrasound shows multiple gallstones within the neck of the gallbladder that is otherwise normal. White blood cell count and LFTs normal, but patient continues to have persistent right upper quadrant pain and vomiting despite analgesics and antiemetics. We discussed both nonoperative and surgical treatment options. Given her persistent pain and nausea, it is unlikely she would tolerate conservative management. Patient wishes to proceed with surgery. We discussed proceeding with a laparoscopic cholecystectomy, possible open, by Dr. Suarez. Description of the procedure, risks, benefits, alternatives, and expected recovery were discussed with the patient in detail. All questions were answered and she will be added onto the surgery schedule. (2) Obesity, morbid, BMI 40.0-49.9: Code(s): E66.01 - Morbid (severe) obesity due to excess calories Status: Acute Plan I have discussed the patient's case and plan of care with Dr. Suarez.
[2025-01-01] MEDS: KETOROLAC 30 MG/ML VIAL (*BKC) IV PUSH (11:45)
--- NOTE | 2025-01-01 12:00 | WPDHPUPDATE1 ---
History and Physical Update Update Date/Time: 01/01/25 12:00 History and Physical has been reviewed, including an updated exam of the patient. There are NO changes in the patient's condition. Risks, benefits, and alternatives have been discussed and questions answered. Patient agrees to proceed with procedure.
[2025-01-01] MEDS: LACTATED RINGERS 1,000 ML 30 ML IV CONT (12:35)
--- OUTSIDE RECORDS SUMMARY | 2025-01-01 12:38 | XMS_ITS | Clinical Summary ---
Author Organization [facility] Address [address] [place] [address] Care Team Providers Care C Consultant Name Role Phone Julian Carias MD Primary Care Provider [phone] Source Comments [facility],non-owned Affiliates and Associated Physician Practices is amultiple site organization consisting of ambulatory clinics and hospital sitesin [place], [place], [place]. This disclosure is being madepursuant to the Care Everywhere program and may not contain all information available regarding this patient. Last updated 18.[facility] [employer] Allergies Active Allergy Reactions Criticality Noted Date [...] 3:01 AM 04/04/2016 11:11 AM Care Teams C Consultant Relationship Specialty Start Date End Date Julian Carias MD [address] [place], [place] [id number] PCP - General Family Medicine 04/03/16
--- NOTE | 2025-01-01 13:51 | P.PNAN_ITS ---
Anes - Initial Pre Proc Eval Procedure: Operation Date: 01/01/25 14:30 Proposed Procedures p Laparoscopic Cholecystectomy - Kayla Suarez MD Date/Time: 01/01/25 13:51 Surgeon: Kayla Suarez MD Pre Op Diagnosis: abd pain Patient Data Age: 19 Gender: F Height: 1.6 m Weight: 102.5 kg Last Vital Signs Temp 97.7 F 01/01/25 12:35 Pulse 68 01/01/25 12:45 Resp 18 01/01/25 12:45 BP 109/81 01/01/25 12:45 Pulse Ox 98 01/01/25 12:45 O2 Del Method Room Air 01/01/25 12:35 Allergies Allergy/AdvReac Type Severity Reaction Status Date / Time morphine Allergy Unknown Hives / Verified 01/01/25 13:07 Red Face Home Medications ?Medication ?Instructions ?Recorded ?Confirmed ?Type omeprazole 20 mg capsule,delayed 20 mg PO DAILY #90 caps 11/24/23 01/01/25 Rx release ondansetron 4 mg disintegrating 4 mg PO Q8H PRN nausea and 11/02/24 01/01/25 Rx tablet vomiting #15 tabs Laboratory Tests 01/01/25 01/01/25 01/01/25 08:23 08:24 08:34 WBC 10.2 H K/mm3 (4.5-10.0) RBC 5.13 M/mm3 (4.2-5.4) Hgb 13.4 g/dL (12.0-15.0) Hct 41.6 % (37.0-47.0) MCV 81.1 fl (80-100) MCH 26.1 pg (26-34) MCHC 32.2 g/dl (32-36) RDW 13.9 % (11.5-14.5) Plt Count 279 k/mm3 (150-375) MPV 11.1 H fl (7.4-10.4) Immature Gran % (Auto) 0.3 % (0-0.5) Neut % (Auto) 83.8 H % (45.5-73.1) Lymph % (Auto) 12.0 L % (18.3-44.2) [place] % (Auto) 3.5 % (2.6-8.5) Eos % (Auto) 0.2 % (0-4.4) Baso % (Auto) 0.2 % (0.2-1.2) Lymph # (Auto) 1.22 K/mm3 (0.9-3.2) [place] # (Auto) 0.4 K/mm3 (0.1-0.6) Eos # (Auto) 0.0 K/mm3 (0-0.3) Baso # (Auto) 0.0 K/mm3 (0.0-0.1) Abs Immat Gran (auto) 0.03 K/mm3 (0.00-0.031) Absolute Neuts (auto) 8.5 H K/mm3 (1.3-6.7) Absolute Nucleated RBC 0.000 K/mm3 (0.0-0.012) Nucleated RBC % 0.0 % (0.0-0.2) Sodium 137 mmol/L (137-145) Potassium 4.1 mmol/L (3.4-5.0) Chloride 106 mmol/L (98-107) Carbon Dioxide 20 L mmol/L (22-30) Anion Gap 11 mmol/L (4-12) BUN 10 mg/dL (7-17) Creatinine 0.68 L mg/dL (0.7-1.0) Estim Creat Clear Calc 129 ml/min Estimated GFR > 60 (59 - ) Glucose 132 H mg/dL (65-110) Calcium 9.2 mg/dL (8.4-10.2) Total Bilirubin 1.2 mg/dL (0.2-1.3) AST 27 U/L (14-36) ALT 31 U/L (6-35) Alkaline Phosphatase 72 U/L (38-126) Total Protein 8.0 g/dL (6.3-8.2) Albumin 4.6 g/dL (3.5-5.1) Lipase 59 U/L (23-300) Urine Color Yellow (Yellow) Urine Appearance Clear (Clear) Urine pH 6.5 (5.0-9.0) Ur Specific [place] 1.031 (1.001-1.035) Urine Protein Trace mg/dL (Negative) Urine Glucose (UA) Negative mg/dL (Negative) Urine Ketones Trace H mg/dL (Negative) Ur Blood (Man) Negative (Negative) Urine Nitrate Negative (Negative) Urine Bilirubin Negative (Negative) Urine Urobilinogen 0.2 mg/dL (<2.0) Leukocyte Esterase Rfl Negative ELIA/UL (Negative) Urine RBC 0-2 /hpf (0-2) Urine WBC 0-5 /hpf (0-3) Ur Squamous Epith Cells Occasional /hpf (Few) Urine Bacteria Rare /hpf Urine Casts 0-2 POC Urine HCG, Qual Negative (Negative) Patient hx anesthesia problems: none Family hx anesthesia problems: none Results Review: All pre-operative results and documents have been reviewed as part of the pre- operative evaluation. [facility] Surgical History Surgical History History of appendectomy (2015) Hx of tonsillectomy (06/27/08) Family History Family History Father Hypertension Family history of elevated blood lipids Grandparent Hypertension Social History Social History Smoking status: Never smoker Alcohol intake: never Lack of Transportation: No Lack of Food: Never True Current Housing: I Have Housing Concerned About Future Housing: No Difficulty Paying Gas/Electric Bills: No Difficulty Paying for Meds: No Currently Unemployed: No Education: High School Diploma/GED Difficulty w/ Childcare or Family Care: No Anes - Eval Final PreProcedure Day of Procedure 01/01/25 13:51 Patient weight: morbidly obese Lungs: normal air movement Airway: Mallampati scale class III Neurological: alert and oriented Last oral intake: >/= 8 hours ASA classification: III Emergent: no Anesthetic plan: proceed Anesthesia type and monitoring: general ETT and standard monitoring Results Review: All pre-operative results and documents have been reviewed as part of the pre- operative evaluation. BMI 40, GERD/current N and V. Informed Consent: The patient's anesthetic plan and its attendant risks and benefits were discusse d with the patient/family/POA. Questions were solicited and answers provided to the satisfaction of the patient/family/POA.
[2025-01-01] MEDS: ceFAZolin 2 GM/D5W 50 ML 2 GM/50 ML BAG IVPB (14:02)
[2025-01-01] MEDS: BUPIVACAINE/EPINEPHRINE 0.5% 50 ML VIAL 30 ML INFILTRATE (14:33)
--- NOTE | 2025-01-01 15:04 | P.OP_ITS ---
Procedure Note - Detailed Date of Procedure 01/01/25 Pre-op Diagnosis Acute cholecystitis, cholelithiasis Post-op Diagnosis Same Procedure Performed Laparoscopic cholecystectomy Surgeon Kayla Suarez MD Anesthesia General Indications 19-year-old female presenting to the emergency department with acute chol ecystitis, cholelithiasis Findings acute cholecystitis, cholelithiasis with stone impacted at the neck of the gallbladder Description of Procedure The patient was taken to the operating room placed in the supine position. After adequate induction of general anesthesia, the patient was prepped and dr aped in normal sterile fashion. A time-out was then performed to verify the patient's identity as well as the procedure being performed. I then made a 5 mm incision in the infraumbilical region. Through this, a Veress needle was placed into the peritoneal cavity and CO2 gas was then insufflated. After adequate pneumoperitoneum was achieved, the Veress needle was removed and a 5 mm optiview trocar was placed through this incision under direct visualization. I then placed the laparoscope through this trocar site and under direct visualization placed a further 12 mm subxiphoid port as well as 2 additional 5 mm ports in the right upper abdomen. The gallbladder was then identified and was noted to be inflamed, distended, and full of gallstones. I was able to place a grasper at the dome of the gallbladder and this was retracted anterior and cephalad up over the liver. A 2nd retractor was then placed at the infundibulum and retracted laterally, this allowed visualization of the triangle of Calot. Of note, there was a large stone impacted near the neck of the gallbladder. I then was able to visualize the cystic duct in its entirety from its proximal insertion into the gallbladder, to its distal junction with the common hepatic/common bile duct junction. At this point, I carefully skeletonized the proximal cystic duct with the [place] dissector. I then clipped and transected the proximal cystic duct. Next I visualized the cystic artery. Again the artery was skeletonized, clipped, and transected. I then used the Bovie cautery to take down the peritoneal attachments of the gallbladder off the liver bed. This was somewhat difficult given the amount of inflammation in the posterior space. Once the gallbladder specimen was completely detached, an endo-pouch was placed through the 12 mm port site. I then placed the gallbladder specimen into the Endo pouch and removed the endo-pouch from the 12 mm port site. The specimen will now be sent to pathology for further review. I then copiously irrigated the right upper quadrant. Hemostasis was noted in the liver bed, the clips were noted to be in good position on both the cystic duct stump and the cystic artery stump. No other pathology was noted in the right upper quadrant. I then moved the laparoscope to the subxiphoid port. No iatrogenic injury or other pathology was noted in the lower abdomen. I then closed the 12 mm trocar site under direct visualization using the Wood cone and 0 Vicryl suture. At this point, the abdomen was desufflated and all ports removed. All port sites were then closed with 4.O Monocryl subcuticular sutures. Dermabond was placed on each incision. The patient tolerated the procedure well, was extubated in the operating room postoperative and will be transferred to the recovery room in stable condition Estimated Blood Loss 5 Drains No Packing No Pathology Yes Complications No immediate complications Condition Stable Disposition PACU [facility] Billing Surgery - Charge Forward: Surgery Billing
[2025-01-01] MEDS: fentaNYL CITRATE INJ (*CRX) 100 MCG/2 ML VIAL 25 MCG IV PUSH ×8 (15:50→16:24)
[2025-01-01] MEDS: HYDROcodone/acetaminophen (*CRX) 5-325 MG TABLET 1 TAB PO (17:02)
== END 2025-01-01 17:20 | disposition home or self-care (01) ==
LOC: ANHED 11:00 → ANHSURGERY 11:00
PROVIDERS: Emergency Provider Emergency Medicine; PCP Nurse Practitioner Family; Visit Provider Surgery
PROC: 0FT44ZZ Resection of Gallbladder, Percutaneous Endoscopic Approach (ICD-10-PCS; CPT 47562; principal; 2025-01-01 14:30)
DX: K80.20 Calculus of gallbladder without cholecystitis without obstruction (principal); E66.01 Morbid (severe) obesity due to excess calories; Z68.41 Body mass index [BMI] 40.0-44.9, adult
CPT/HCPCS: 47562; 36415; 76705; 80053; 81001; 81025; 83690; 85025; 88304; 96361; 96365; 96375; 96376; 99285; A9270; J0690; J0780; J1100; J1885; J2003; J2250; J2405; J2550; J2704; J3010; J7030; J7120